=== PATIENT | male | born 1975 | race Caucasian/White ===

== ENCOUNTER → 2017-10-08 | Outpatient (CLI) | payer BC ==
--- NOTE | 2017-10-08 17:46 | Diagnostic Imaging Report ---
PROCEDURE: MRI lumbar spine. TECHNIQUE: Multiplanar, multisequence MRI of the lumbar spine was performed without contrast. INDICATION: Cauda equina syndrome. Numbness at the waist, left leg and groin. More pronounced over the past couple of days. History of lumbar laminectomy in 2011. History of multiple sclerosis. COMPARISON: None. FINDINGS: For the purposes of this exam there are five lumbar type vertebral bodies with the last well formed disk space designated L5-S1. Alignment appears normal. There is no spondylolisthesis. The vertebral body heights are preserved. There is no acute fracture or dislocation. There is mild disc height loss at L5-S1, the remaining disc heights appear preserved. The conus terminates in appropriate position. There is a questionable area of increased signal at the L1 level in the spinal cord (image 9 series 3); however, this is not included on the axial imaging. No paraspinous masses are seen. The axial images demonstrate: T12-L1: No significant disc bulge. No spinal canal or foraminal stenosis. L1-L2: No disk bulge, spinal canal or foraminal stenosis. L2-L3: No disk bulge, spinal canal or foraminal stenosis. L3-L4: No disk bulge, spinal canal or foraminal stenosis. L4-L5: No disk bulge, spinal canal or foraminal stenosis. L5-S1: Diffuse disc bulge. No spinal canal stenosis. Minimal bilateral foraminal narrowing. IMPRESSION: 1. Mild diffuse disc bulge at L5-S1 with no significant spinal canal or foraminal stenosis. 2. Questionable area of increased T2 signal at the L1 level of the spinal cord; however, this is not included on the axial imaging. This could be related to the patient's known multiple sclerosis, recommend correlation with prior imaging if available. Dictated by: Dictated on workstation # [id number]
== END ==
LOC: RAD 16:42
PROVIDERS: ATTEND Nurse Practitioner Family
DX: M51.27 Other intervertebral disc displacement, lumbosacral region (principal); G83.4 Cauda equina syndrome; Z98.890 Other specified postprocedural states; Z87.39 Personal history of other diseases of the musculoskeletal system and connective tissue
CPT/HCPCS: 72148

== ENCOUNTER → 2018-08-02 | Outpatient (CLI) | payer BC ==
[~2018-08-02] VITALS: Ht 180.3 cm; Wt 101.2 kg
[~2018-08-02] MED LIST: REGADENOSON 0.4 MG/5 ML SYR (LEXISCAN) IV ONE
[2018-08-02] MEDS: CATHETER FLUSH 10 ML SYR IV PRN ×2 (08:02→08:45)
[2018-08-02 09:26] LABS: CHOLESTEROL 154 MG/DL (< 200); HDL CHOLESTEROL 43 MG/DL (40-60); TRIGLYCERIDES 150 MG/DL (<150); VLDL CHOLESTEROL 30 MG/DL (5-40)
--- NOTE | 2018-08-02 13:56 | STRESS TEST ---
DATE OF SERVICE: 08/02/2018 RESTING AND POST REGADENOSON TECHNETIUM-99M TETROFOSMIN SPECT CT IMAGING ORDERING PHYSICIAN: Dr. Hutchison. PRIMARY PHYSICIAN: Dr. Hutchison. CLINICAL DIAGNOSIS: Left chest and shoulder pain. Baseline images were carried out after injection of 10.99 mCi of technetium-99m Tetrofosmin. This was followed by 0.4 mg regadenoson and 30.6 mCi technetium-99m Tetrofosmin for stress imaging. The electrocardiogram showed sinus rhythm at baseline and it did not change significantly with the regadenoson infusion. The patient tolerated the procedure well. Review of images at rest and following stress does not indicate any distinct perfusion defects consistent with significant myocardial ischemia or infarction. Gated images show normal global left ventricular systolic function and normal regional wall motion. Left ventricular ejection fraction is calculated to be 62%. Left ventricular end diastolic volume is 91 mL. TID is absent (1.15). CONCLUSIONS: 1. No evidence of any significant myocardial ischemia or infarction on this study. 2. Normal regional wall motion. 3. Normal global left ventricular systolic function with a calculated ejection fraction 62%. Job ID: [id number] DocumentID: [id number] Dictated Date: 08/02/2018 13:27:52 Instrument Lens Inspector Date: 08/02/2018 13:55:35 Dictated By: LORENZO CORONADO MD, MA, FACP, FACC,
== END ==
LOC: CARD 07:31
PROVIDERS: ATTEND Family Medicine
DX: Z13.1 Encounter for screening for diabetes mellitus (principal); Z12.5 Encounter for screening for malignant neoplasm of prostate; E78.2 Mixed hyperlipidemia; M25.512 Pain in left shoulder
CPT/HCPCS: 36415; 78452; 80061; 83036; 84153; 84154; 93017

== ENCOUNTER 2018-08-18 10:30 | Outpatient (CLI) | payer BC ==
[~2018-08-18] VITALS: Ht 185.4 cm; Wt 101.2 kg
[2018-08-18] MEDS ORDERED: BACL10TA PO (11:25)
[2018-08-18] MEDS ORDERED: SERT50TA2 PO (11:25)
[2018-08-18] MEDS ORDERED: OXYB10TA6 PO (11:25)
[2018-08-18] MEDS ORDERED: PRAV40TA2 PO (11:25)
== END 2018-08-18 11:26 ==
LOC: PREOP 10:30
PROVIDERS: ATTEND Surgery
DX: Z01.818 Encounter for other preprocedural examination (principal)

== ENCOUNTER 2018-08-24 11:27 | Day surgery (SDC) | payer BC ==
[~2018-08-24] VITALS: Ht 185.4 cm; Wt 101.2 kg
[~2018-08-24 11:27] MED LIST changes: +BACL10TA PO; +OXYB10TA6 PO; +PRAV40TA2 PO; -REGADENOSON 0.4 MG/5 ML SYR (LEXISCAN) IV ONE; +SERT50TA2 PO
[2018-08-24] MEDS ORDERED: LACTATED RINGERS 1,000 ML IV STA (11:51)
[2018-08-24] MEDS ORDERED: HURRICAINE EXT TUBE (BENZOCAINE) XX PRN (12:00)
--- OUTSIDE RECORDS SUMMARY | 2018-08-24 12:13 | XMS REPORT ---
Author Author [facility] Medical Staff Organization [facility] Address [address] [place] [address] Phone [phone] Summary purpose CCDA Sent to VTE Chief Complaint and Reason for Visit No authorized Reason for Visit (Admitting Diagnosis) is available for this visit. Problem list No authorized problems tracked for continuity of care are available for this visit. Encounters No authorized problems tracked for encounter diagnoses are available for this visit. Medications No medications recorded for this patient visit Allergies, adverse reactions, alerts Allergen Category Ingredient Status Reaction Severity Onset house dust Drug house dust Active Immunizations No immunizations recorded for this patient visit Relevant diagnostic tests and/or laboratory data RESULTS Chemistry Group [id number] Result Normal Range Units Glucose 98 74-106 mg/dl Urea Nitrogen (BUN) 15 7-18 mg/dl Osmolality Calculation 282 275-295 mOsm/kg Creatinine 1.05 0.6-1.3 mg/dl Bun/Creatinine Ratio 14.3 12.0-20.0 Ratio Sodium 141 136-145 mmol/L Potassium 4.8 3.6-5.1 mmol/L Chloride 103 98-107 mmol/L CO2 31.0 21.0-32.0 mmol/L Anion GAP L 7.0 10.0-20.0 mmol Calcium 8.5 8.5-10.1 mg/dl Bilirubin Total 0.5 .1-1.0 mg/dl AST 22 15-37 U/L ALT 43 30-65 U/L Alkaline Phosphatase 76 50-136 U/L Albumin 4.0 3.4-5.0 g/dl A/G Ratio L 1.3 1.5-2.0 Ratio Protein Total 7.0 6.4-8.2 g/dl Globulin 3.0 2.3-3.5 g/dl Bilirubin Indirect 0.40 mg/dl Bilirubin Direct 0.1 .1-.3 mg/dl CPK 175 26-308 U/L Cholesterol 162 1-200 mg/dl Triglycerides H 183 30-150 mg/dl HDL Cholesterol 41 35-60 mg/dl LDL Calculated 84.4 1-130 mg/dl Risk H 4.0 1.4-3.3 Ratio Hemoglobin A1C 5.7 4.8-6.0 % eGFR > 60 > 60 ml/min. CBC [id number] Result Normal Range Units White Blood Count 4.5 4.5-10.5 x 103/uL Red Blood Cells 4.49 4.40-6.40 x 106/uL Hemoglobin 14.2 12.0-18.0 g/dl Hematocrit 42.6 37-51 % Mean Rip Volume 94.8 80-100 fL Mean Rip Hemoglobin 31.6 26.0-32.0 pg Mean Rip Hemoglobin Conc 33.3 31.0-36.0 g/dl Platelet Count 318 140-440 x 103/uL Red Cell Distribution Width 12.3 11.5-14.5 % Mean Platelet Volume 7.4 0-99.8 fL Neutrophil % L 29.9 38.0-80.0 % Lymphocyte % 47.9 10.0-58.5 % Mid % 22.2 0.1-24.0 % Neutrophil # L 1.3 1.5-7.5 x 103/uL Lymphocyte # 2.2 0.6-4.1 x 103/uL Mid # 1.0 0.0-1.8 x 103/uL White Blood Count 4.5 4.5-10.5 x 103/uL Red Blood Cells 4.49 4.40-6.40 x 106/uL Hemoglobin 14.2 12.0-18.0 g/dl Hematocrit 42.6 37-51 % Mean Rip Volume 94.8 80-100 fL Mean Rip Hemoglobin 31.6 26.0-32.0 pg Mean Rip Hemoglobin Conc 33.3 31.0-36.0 g/dl Platelet Count 318 140-440 x 103/uL Red Cell Distribution Width 12.3 11.5-14.5 % Mean Platelet Volume 7.4 0-99.8 fL Neutrophil % L 29.9 38.0-80.0 % Lymphocyte % 47.9 10.0-58.5 % Mid % 22.2 0.1-24.0 % Neutrophil # L 1.3 1.5-7.5 x 103/uL Lymphocyte # 2.2 0.6-4.1 x 103/uL Mid # 1.0 0.0-1.8 x 103/uL Reference Lab [id number] Result Normal Range Units LDL Calculated 84.4 1-130 mg/dl History of procedures Procedure Code Code Type Description Date Performed Performing Physician 40134 CPT-4 COMPLETE CBC W/AUTO DIFF WBC 12-24-2015 MATEUSZ LOPEZ 49784 CPT-4 METABOLIC PANEL TOTAL CA 12-24-2015 MATEUSZ LOPEZ 63863 CPT-4 GLYCOSYLATED HEMOGLOBIN TEST 12-24-2015 MATEUSZ LOPEZ 34603 CPT-4 ASSAY OF CK (CPK) 12-24-2015 MATEUSZ LOPEZ 15223 CPT-4 LIPID PANEL 12-24-2015 MATEUSZ LOPEZ 92123 CPT-4 HEPATIC FUNCTION PANEL 12-24-2015 MATEUSZ LOPEZ 87331 CPT-4 ROUTINE VENIPUNCTURE 12-24-2015 MATEUSZ LOPEZ Functional status No functional or cognitive status observations are available for this visit. Vital signs No authorized vital signs are available for this visit. Social history No Social History or smoking status observations were recorded for this visit. ( Unknown if ever smoked.) Treatment Plan No treatment plan text is available for this visit. Hospital discharge instructions No discharge instruction text is available for this visit.
--- OUTSIDE RECORDS SUMMARY | 2018-08-24 12:14 | XMS REPORT ---
Author Author [facility] Medical Staff Organization [facility] Address [address] [place] [address] Phone [phone] Summary purpose CCDA Sent to HIE Chief Complaint and Reason for Visit No authorized Reason for Visit (Admitting Diagnosis) is available for this visit. Problem list No authorized problems tracked for continuity of care are available for this visit. Encounters No authorized problems tracked for encounter diagnoses are available for this visit. Medications No home medications recorded for this patient visit Allergies, adverse reactions, alerts No allergy information is available for this patient. Immunizations No immunizations recorded for this patient visit Relevant diagnostic tests and/or laboratory data RESULTS Urine Dipstick [id number]:00 Result Normal Range Units Site Unknown Urine Bilirubin (Dipstick) Negative Negative Urine Blood (Dipstick) Negative Negative Urine Color AB Light Yellow Yellow Urine Glucose (Dipstick) Negative Negative Urine Ketones (Dipstick) Negative Negative Urine Leukocyte (Dipstick) Negative Negative Urine Nitrite (Dipstick) Negative Negative Urine pH (Dipstick) 6.0 4.5-8.0 Urine Appearance Clear Clear Urine Protein (Dipstick) Negative Negative Urine Urobilinogen(Dipstick) 0.2 0.1-1.0 EU/dL Urine Specific [place] (Dipsti 1.020 1.004-1.035 Urine WBC AB 3-5 N;NONESEEN /hpf Urine RBC AB 0-2 NONESEEN;NEG /hpf Urine Bacteria Rare Sqamous Epi's Rare Mucus Threads Many Site Unknown Urine Bilirubin (Dipstick) Negative Negative Urine Blood (Dipstick) Negative Negative Urine Color AB Light Yellow Yellow Urine Glucose (Dipstick) Negative Negative Urine Ketones (Dipstick) Negative Negative Urine Leukocyte (Dipstick) Negative Negative Urine Nitrite (Dipstick) Negative Negative Urine pH (Dipstick) 6.0 4.5-8.0 Urine Appearance Clear Clear Urine Protein (Dipstick) Negative Negative Urine Urobilinogen(Dipstick) 0.2 0.1-1.0 EU/dL Urine Specific [place] (Dipsti 1.020 1.004-1.035 Urine WBC AB 3-5 N;NONESEEN /hpf Urine RBC AB 0-2 NONESEEN;NEG /hpf Urine Bacteria Rare Sqamous Epi's Rare Mucus Threads Many History of procedures Procedure Code Code Type Description Date Performed Performing Physician 72988 CPT-4 URINALYSIS AUTO W/SCOPE 04-24-2015 NICHOLAS HURLEY Functional status No functional or cognitive status [...]
--- OUTSIDE RECORDS SUMMARY | 2018-08-24 12:14 | XMS REPORT ---
Author Author ANJALI JEWELL Organization [facility] Address [address] [place] [address] Care Team Providers Care Fuel Cell Binder Name Role Phone ANJALI JEWELL Unavailable PROBLEMS Type Condition ICD9-CM Code [id number] Code Onset Dates Condition Status SNOMED Code Problem Cauda equina syndrome G83.4 Active 615193440 Problem Mixed hyperlipidemia E78.2 Active 542159958 Problem Mild episode of recurrent major depressive disorder F33.0 Active 115424339 Problem MS (multiple sclerosis) G35 Active 81207389 Problem Gastroesophageal reflux disease with esophagitis K21.0 Active 051649252 ALLERGIES Substance Reaction Event Type Date Status Morphine Sulfate hives Drug Allergy Apr, Active ENCOUNTERS Encounter Location Date Diagnosis [facility] [address] [address] Sep, [facility] [address] [address] Sep, [facility] [address] [address] Sep, Cauda equina syndrome G83.4 [facility] [id number] [place] [address] Sep, Mixed hyperlipidemia E78.2 ; MS (multiple sclerosis) G35 and Gastroesophageal reflux disease with esophagitis K21.0 [facility] [id number] [place] [address] Aug, [facility] [address] [address] Jul, [facility] [id number] [place] [address] Jun, [facility] [address] [facility] [id number] [place] [address] Jun, [facility] [address] [facility] [id number], [place] [address] Apr, Mild episode of recurrent major depressive disorder F33.0 ; MS (multiple sclerosis) G35 and Gastroesophageal reflux disease with esophagitis K21.0 [facility] [address] [facility] [id number] [place] [address] Mar, IMMUNIZATIONS No Known Immunizations SOCIAL HISTORY Never Assessed REASON FOR VISIT est care---DBennettRN PLAN OF CARE Activity Details Follow Up Will call after records are reviewed Reason: VITAL SIGNS Height 73 in 2017-04-21 Weight 235 lbs 2017-04-21 Temperature 98.1 degrees Fahrenheit 2017-04-21 Heart Rate 80 bpm 2017-04-21 Respiratory Rate 20 2017-04-21 BMI 31.00 kg/m2 2017-04-21 Blood pressure systolic 120 mmHg 2017-04-21 Blood pressure diastolic 76 mmHg 2017-04-21 MEDICATIONS Medication Instructions Dosage Frequency Start Date End Date Duration Status Ibuprofen 800 MG Orally 3 times a day 1 tablet with food or milk as needed 8h Active Sertraline HCl 50 mg Orally Once a day 2 tablets 24h Active Pantoprazole Sodium 40 MG Orally Once a day 1 tablet 24h Active Baclofen 10 mg Orally 2 times a day 1 tablet with food or milk 12h Active Pravastatin Sodium 40 MG Orally Once a day 1 tablet 24h Active RESULTS No Results PROCEDURES No Known procedures INSTRUCTIONS MEDICATIONS ADMINISTERED No Known Medications MEDICAL (GENERAL) HISTORY Type Description Date Medical History multiple sclerosis Medical History anxiety Medical History acid reflux Medical History diverticulosis Surgical History vasectomy 2001 Surgical History wisdom teeth extraction 2007 Surgical History laminectomy L5-S1 2012 Surgical History Spinal tap and blood patch 2017 Hospitalization History Surgery(s) only
--- OUTSIDE RECORDS SUMMARY | 2018-08-24 12:14 | XMS REPORT ---
Author Author LACIE STEPHENSON Organization [facility] Address [address] [place] [address] Care Team Providers Care Hotel Housekeeper Name Role Phone LACIE STEPHENSON Unavailable PROBLEMS Type Condition ICD9-CM Code [id number] Code Onset Dates Condition Status SNOMED Code Problem Cauda equina syndrome G83.4 Active 542971481 Problem Mixed hyperlipidemia E78.2 Active 259413213 Problem Mild episode of recurrent major depressive disorder F33.0 Active 933683688 Problem MS (multiple sclerosis) G35 Active 86878888 Problem Gastroesophageal reflux disease with esophagitis K21.0 Active 653773674 ALLERGIES No Information ENCOUNTERS Encounter Location Date Diagnosis [facility] [place] [id number] [place] [address] Sep, [facility] [place] [id number] [place] [address] Sep, [facility] [place] [address] [address] Sep, Cauda equina syndrome G83.4 [facility] [place] [id number] [place] [address] Sep, Mixed hyperlipidemia E78.2 ; MS (multiple sclerosis) G35 and Gastroesophageal reflux disease with esophagitis K21.0 [facility] [place] [id number] [place] [address] Aug, [facility] [place] [address] [address] Jul, [facility] [place] [id number] [place] [address] Jun, [facility] [id number] [place] [address] Jun, [facility] [place] [address] [facility] [id number], [place] [address] Apr, Mild episode of recurrent major depressive disorder F33.0 ; MS (multiple sclerosis) G35 and Gastroesophageal reflux disease with esophagitis K21.0 [facility] [place] [address] [facility] [id number] [place] [address] Mar, IMMUNIZATIONS No Known Immunizations SOCIAL HISTORY Never Assessed REASON FOR VISIT Requests return call PLAN OF CARE VITAL SIGNS MEDICATIONS Unknown Medications RESULTS No Results PROCEDURES No Known procedures INSTRUCTIONS MEDICATIONS ADMINISTERED No Known Medications MEDICAL (GENERAL) HISTORY Type Description Date Medical History multiple sclerosis Medical History anxiety Medical History acid reflux Medical History diverticulosis Surgical History vasectomy 2001 Surgical History wisdom teeth extraction 2007 Surgical History laminectomy L5-S1 2011 Surgical History Spinal tap and blood patch 2017 Hospitalization History Surgery(s) only
--- OUTSIDE RECORDS SUMMARY | 2018-08-24 12:14 | XMS REPORT ---
Author Author LACIE STEPHENSON Organization [facility] Address [address] [place] [address] Care Team Providers Care Metal Mockup Maker Name Role Phone LACIE STEPHENSON Unavailable PROBLEMS Type Condition ICD9-CM Code FTS20-OC Code Onset Dates Condition Status SNOMED Code Problem Cauda equina syndrome G83.4 Active 750580222 Problem Mixed hyperlipidemia E78.2 Active 380677235 Problem Mild episode of recurrent major depressive disorder F33.0 Active 810921310 Problem MS (multiple sclerosis) G35 Active 27276669 Problem Gastroesophageal reflux disease with esophagitis K21.0 Active 811678145 ALLERGIES Substance Reaction Event Type Date Status Morphine Sulfate hives Drug Allergy Sep, Active ENCOUNTERS Encounter Location Date Diagnosis [facility] [address] [address] Sep, [facility] [address] [address] Sep, [facility] [address] [address] Sep, Cauda equina syndrome G83.4 [facility] [id number] [place] [address] Sep, Mixed hyperlipidemia E78.2 ; MS (multiple sclerosis) G35 and Gastroesophageal reflux disease with esophagitis K21.0 [facility] [address] [address] Aug, [facility] [address] [address] Jul, [facility] [id number] [place] [address] Jun, [facility] [address] [facility] [id number] [place] [address] Jun, [facility] [address] [facility] [id number] [address] Apr, Mild episode of recurrent major depressive disorder F33.0 ; MS (multiple sclerosis) G35 and Gastroesophageal reflux disease with esophagitis K21.0 [facility] [address] [facility] [id number], [place] [address] Mar, IMMUNIZATIONS No Known Immunizations SOCIAL HISTORY Never Assessed REASON FOR VISIT patient states he is having left Leg numbness starting from hip down to his knee x yesterday -- cristian berry PLAN OF CARE Activity Details Follow Up 1 Week, prn w/ PCP Reason:leg numbness MRI results VITAL SIGNS Height 73 in 2017-10-08 Weight 221.0 lbs 2017-10-08 Temperature 98.0 degrees Fahrenheit 2017-10-08 BMI 29.15 kg/m2 2017-10-08 Blood pressure systolic 124 mmHg 2017-10-08 Blood pressure diastolic 82 mmHg 2017-10-08 MEDICATIONS Medication Instructions Dosage Frequency Start Date End Date Duration Status Pantoprazole Sodium 40 mg Orally Once a day 1 tablet 24h Active Sertraline HCl 50 mg Orally Once a day 2 tablets 24h Active Baclofen 10 mg Orally 2 times a day 1 tablet with food or milk 12h Active Ibuprofen 800 MG Orally 3 times a day 1 tablet with food or milk as needed 8h Active Pravastatin Sodium 40 mg Orally Once a day 1 tablet 24h 30 days Active RESULTS Name Result Date Reference Range MRI : Lumbar w/o contrast 2017-10-08 PROCEDURES No Known procedures INSTRUCTIONS MEDICATIONS ADMINISTERED [...]
--- OUTSIDE RECORDS SUMMARY | 2018-08-24 12:14 | XMS REPORT ---
Author Author ANJALI JEWELL Organization [facility] Address [address] [place] [address] Care Team Providers Care Dental Professional Name Role Phone ANJALI JEWELL Unavailable PROBLEMS Type Condition ICD9-CM Code ZNM51-OH Code Onset Dates Condition Status SNOMED Code Problem Cauda equina syndrome G83.4 Active 626179930 Problem Mixed hyperlipidemia E78.2 Active 871665183 Problem Mild episode of recurrent major depressive disorder F33.0 Active 180489010 Problem MS (multiple sclerosis) G35 Active 30677131 Problem Gastroesophageal reflux disease with esophagitis K21.0 Active 843814710 ALLERGIES Substance Reaction Event Type Date Status Morphine Sulfate hives Drug Allergy Sep, Active ENCOUNTERS Encounter Location Date Diagnosis [facility] [address] [address] Sep, [facility] [address] [address] Sep, [facility] [address] [address] Sep, Cauda equina syndrome G83.4 [facility] [id number] [place] [address] Sep, Mixed hyperlipidemia E78.2 ; MS (multiple sclerosis) G35 and Gastroesophageal reflux disease with esophagitis K21.0 [facility] [id number] [place] [address] Aug, [facility] [address] [address] Jul, [facility] [id number] [place] [address] Jun, [facility] [address] [facility] [id number] [place] [address] Jun, [facility] [address] [facility] [id number], [place] [address] Apr, Mild episode of recurrent major depressive disorder F33.0 ; MS (multiple sclerosis) G35 and Gastroesophageal reflux disease with esophagitis K21.0 [facility] [address] [facility] [id number] [place] [address] Mar, IMMUNIZATIONS No Known Immunizations SOCIAL HISTORY Never Assessed REASON FOR VISIT followup gerd - EDISON Christopher PLAN OF CARE Activity Details Follow Up 6 Months with Kianna for [facility] Reason: VITAL SIGNS Height 73 in 2017-09-20 Weight 220 lbs 2017-09-20 Temperature 98.2 degrees Fahrenheit 2017-09-20 Heart Rate 80 bpm 2017-09-20 Respiratory Rate 18 2017-09-20 BMI 29.02 kg/m2 2017-09-20 Blood pressure systolic 100 mmHg 2017-09-20 Blood pressure diastolic 70 mmHg 2017-09-20 MEDICATIONS Medication Instructions Dosage Frequency Start Date End Date Duration Status Ibuprofen 800 MG Orally 3 times a day 1 tablet with food or milk as needed 8h Active Pravastatin Sodium 40 mg Orally Once a day 1 tablet 24h 30 days Active Baclofen 10 mg Orally 2 times a day 1 tablet with food or milk 12h Active Sertraline HCl 50 mg Orally Once a day 2 tablets 24h Active Pantoprazole Sodium 40 mg Orally Once a [...]
--- OUTSIDE RECORDS SUMMARY | 2018-08-24 12:14 | XMS REPORT ---
Author Author [facility] Medical Staff Organization [facility] Address [address] [place] [address] Phone [phone] Summary purpose CCDA Sent to [facility] Chief Complaint and Reason for Visit No [...] visit Relevant diagnostic tests and/or laboratory data No authorized results are available for this patient visit History of procedures Procedure Code Code Type Description Date Performed Performing Physician 99418 CPT-4 INJECT EPIDURAL PATCH 10-13-2016 NICHOLAS HURLEY Functional status Cognitive Status Finding Observation Time Level of Consciousne Alert :12 Oriented to Person Yes 01-20-209736:[address] Yes 74-06-619686:12 Oriented to Time Yes :12 Vital signs Type Value Date Respirations 16 90-59-257973:12 Pulse 76 69-58-534422:12 O2 Saturation 97% :12 Systolic Blood Press 97mm/HG 93-48-348865:12 Diastolic Blood Pres 67mm/HG 59-73-650035:12 Temperature (Fahr) 98.4Degrees 60-22-014305:12 Social history No Social History or smoking status observations were recorded for this visit. ( Unknown if ever smoked.) Treatment Plan No treatment plan text is available for this visit. Hospital discharge instructions Diagnosis 1. Spinal Headache status post Lumbar Puncture Activity Level 1. Rest this evening and x 48 hours 2. Avoid lifting, repetitive bending x48 hours 3. Activity as discussed with David Chris CRNA Follow up with As needed Other Certified Ins Contact [facility] with any questions or concerns at
--- OUTSIDE RECORDS SUMMARY | 2018-08-24 12:14 | XMS REPORT ---
Author Author LACIE STEPHENSON Organization [facility] Address [address] [place] [address] Care Team Providers Care Meat Butcher Name Role Phone LACIE STEPHENSON Unavailable PROBLEMS Type Condition ICD9-CM Code CWK80-PR Code Onset Dates Condition Status SNOMED Code Problem Cauda equina syndrome G83.4 Active 318706537 Problem Mixed hyperlipidemia E78.2 Active 760462711 Problem Mild episode of recurrent major depressive disorder F33.0 Active 219666703 Problem MS (multiple sclerosis) G35 Active 13711096 Problem Gastroesophageal reflux disease with esophagitis K21.0 Active 230513642 ALLERGIES No Information ENCOUNTERS Encounter Location Date Diagnosis [facility] [id number] [place] [address] Sep, [facility] [id number] [place] [address] Sep, [facility] [address] [address] Sep, Cauda equina syndrome G83.4 [facility] [id number] [place] [address] Sep, Mixed hyperlipidemia E78.2 ; MS (multiple sclerosis) G35 and Gastroesophageal reflux disease with esophagitis K21.0 [facility] [id number] [place] [address] Aug, [facility] [address] [address] Jul, [facility] [id number] [place] [address] Jun, [facility] [id number] [place] [address] Jun, [facility] [address] [facility] [id number] [address] Apr, Mild episode of recurrent major depressive disorder F33.0 ; MS (multiple sclerosis) G35 and Gastroesophageal reflux disease with esophagitis K21.0 [facility] [address] [facility] [id number] [place] [address] Mar, IMMUNIZATIONS No Known Immunizations SOCIAL HISTORY Never Assessed REASON FOR VISIT MRI results PLAN OF CARE VITAL SIGNS MEDICATIONS Unknown Medications RESULTS No Results PROCEDURES No Known procedures INSTRUCTIONS MEDICATIONS ADMINISTERED No Known Medications MEDICAL (GENERAL) HISTORY Type Description Date Medical History multiple sclerosis Medical History anxiety Medical History acid reflux Medical History diverticulosis Surgical History vasectomy 2001 Surgical History wisdom teeth extraction 2007 Surgical History laminectomy L5-S1 2011 Surgical History Spinal tap and blood patch 2016 Hospitalization History Surgery(s) only
--- OUTSIDE RECORDS SUMMARY | 2018-08-24 12:14 | XMS REPORT ---
Author Author [facility] Medical Staff Organization [facility] Address [address] [place] [address] Phone [phone] Summary purpose CCDA Sent to [facility] Chief Complaint and Reason for Visit No [...] Code Type Description Date Performed Performing Physician Q9966 CPT-4 LOCM 200-299MG/ML IODINE,1ML 08-28-2015 MARK SORENSON J1040 CPT-4 METHLPREDNISOLONE ACETATE 08-28-2015 MARK SORENSON J1030 CPT-4 DEPO MEDROL 40MG 08-28-2015 MARK SORENSON 17328 CPT-4 INJECT SPINE L/S (CD) 08-28-2015 MARK SORENSON Functional status Cognitive Status Finding Observation Time Level of Consciousne Alert 07-67-143331:00 Oriented to Person Yes 49-86-934268:[address] Yes 49-67-529726:00 Oriented to Time Yes 38-07-016672:00 Vital signs Type Value Date Respirations 16 14-55-260585:00 Pulse 60 96-99-732838:00 O2 Saturation 92% 93-70-289644:00 Systolic Blood Press 119mm/HG 43-00-718523:00 Diastolic Blood Pres 64mm/HG 71-42-490633:00 Temperature (Fahr) 97.8Degrees 33-74-293022:00 Social history No Social History or smoking status observations were recorded for this visit. ( Unknown if ever smoked.) Treatment Plan Treatment Plan at Pt able to move all limbs, stand, walk. No change in meds. Hospital discharge instructions Diagnosis post epidural Diet as tolerated Activity Level Rest next 24-48 hrs. No lifting greater than 15 pounds, Limit bending /twisting X 2 days. Continue routine home medication. Meds Dispensed by Pr none
--- OUTSIDE RECORDS SUMMARY | 2018-08-24 12:14 | XMS REPORT ---
Author Author Osmany Vásquez Organization [employer] Address Unknown Phone Unavailable Care Team Providers Care Taker Off Name Role Phone Osmany Vásquez CP Unavailable Allergies, Adverse Reactions, Alerts Substance Reaction Event Type morphine hives Drug Allergy chlorine headaches, blurred vision Non Drug Allergy Problems Problem Type Condition Code Onset Dates Condition Status Problem Seborrheic dermatitis L21.9 Active Problem Family history of melanoma Z80.8 Active Medications Medication Code System Code Instructions Start Date End Date Status Dosage gabapentin NDC ____ not defined sertraline NDC ____ not defined pravastatin NDC ____ not defined pantoprazole NDC ____ not defined Results No Known Results Summary Purpose [employer] Submission
--- OUTSIDE RECORDS SUMMARY | 2018-08-24 12:14 | XMS REPORT | Referral Summary ---
Author Author [facility] Organization [facility] Address Unknown Phone Unavailable Care Team Providers Care Auto Machinist Name Role Phone Min Colvin PCP Encounter VC Date(s): 10/08/16 - 10/08/16 [facility] [address] [place] [address] Discharge Disposition: 01-Home or Self Care Attending Physician: Asa Smart MD Admitting Physician: Asa Smart MD Vital Signs Most recent to 1 oldest [Reference Range]: Temperature Temporal 36.8 degC Artery [36.3-37.8 (10/08/16 2:30 PM) degC] Peripheral Pulse 72 bpm Rate [60-100 bpm] (10/08/16 2:30 PM) Heart Rate Monitored 68 bpm [60-100 bpm] (10/08/16 12:45 PM) Respiratory Rate 18 br/min [14-20 br/min] (10/08/16 2:30 PM) Blood Pressure 128/68 mmHg [90-140/60-90 mmHg] (10/08/16 2:30 PM) SpO2 98 % (10/08/16 2:30 PM) Problem List Condition Effective Dates Status Health Status Informant Anxiety(Confirmed) Active patient H/O Active patient hypotension(Confirme d) HLD Active patient (hyperlipidemia)(Con firmed) Allergies, Adverse Reactions, Alerts Substance Reaction Severity Status morphine Welts Medium Active Hives Medications aspirin 81 mg oral tablet 81 mg 1 tabs, Oral, Daily, # 30 tabs, 0 Refill(s) Start Date: 10/08/16 Status: Ordered baclofen 10 mg oral tablet 10 mg 1 tabs, Oral, TID, Muscle Pain, # 270 tabs, 0 Refill(s) Start Date: 10/08/16 Status: Ordered Claritin 10 mg, Oral, Daily, 0 Refill(s) Start Date: 10/08/16 Status: Ordered cyclobenzaprine 10 mg oral tablet 10 mg 1 tabs, Oral, BID, as needed for spasm, # 30 tabs, 0 Refill(s) Start Date: 10/08/16 Status: Ordered ibuprofen 800 mg, Oral, q8hr, Pain Mild (1-3), 0 Refill(s) Start Date: 10/08/16 Status: Ordered MiraLax oral powder for reconstitution 17 g, Oral, Daily, dissolve in water before taking, # 255 g, 0 Refill(s) Start Date: 10/08/16 Status: Ordered One-A-Day Men's Health Formula tabs, Oral, Daily, 0 Refill(s) Start Date: 10/08/16 Status: Ordered pantoprazole 40 mg oral delayed release tablet mg tabs, Oral, Daily, 0 Refill(s) Start Date: 10/08/16 Status: Ordered pravastatin 10 mg oral tablet 10 mg 1 tabs, Oral, Daily, # 30 tabs, 0 Refill(s) Start Date: 10/08/16 Status: Ordered Probiotic Formula (Bacillus Coagulans) 1 caps, Oral, Daily, 0 Refill(s) Start Date: 10/08/16 Status: Ordered sertraline 75 mg, Oral, Daily, 0 Refill(s) Start Date: 10/08/16 Status: Ordered Results Hematology Most recent to 1 oldest [Reference Range]: WBC [4.8-10.8 5.1 10*3/uL 10*3/uL] (10/08/16 10:00 AM) RBC [4.60-6.20] 4.60 (10/08/16 10:00 AM) Hgb [14.0-18.0 13.7 gm/dL gm/dL] *LOW* (10/08/16 10:00 AM) Hct [42.0-52.0 %] 41.2 % *LOW* (10/08/16 10:00 AM) MCV [82.0-99.0 fL] 89.6 fL (10/08/16 10:00 AM) MCH [27.0-32.0 pg] 29.8 pg (10/08/16 10:00 AM) MCHC [32.0-36.0 33.3 gm/dL gm/dL] (10/08/16 10:00 AM) RDW [11.5-14.5 %] 12.5 % (10/08/16 10:00 AM) Platelet [150-400 270 10*3/uL 10*3/uL] (10/08/16 10:00 AM) MPV [9.4-12.3 fL] 9.5 fL (10/08/16 10:00 AM) Immature 0.2 % Granulocytes (10/08/16:00 AM) [0.0-1.0 %] Neutrophils [51-75 52 % %] (10/08/16 10:00 AM) Lymphocytes [20-46 37 % %] (10/08/16 10:00 AM) Monocytes [4-11 %] 6 % (10/08/16 10:00 AM) Eosinophils [0-4 %] 5 % *HI* (10/08/16:00 AM) Basophils [0-2 %] 0 % (10/08/16:00 AM) Neutro Absolute 2.67 [1.90-7.00] (10/08/16 10:00 AM) Lymph Absolute 1.90 [0.80-3.30] (10/08/16 10:00 AM) Latimer Absolute 0.31 [0.30-1.00] (10/08/16 10:00 AM) Eos Absolute 0.24 [0.00-0.50] (10/08/16 10:00 AM) Baso Absolute 0.01 [0.00-0.20] (10/08/16 10:00 AM) Nucleated RBC 0.0 /100 WBC Automated [0 /100 (10/08/16 10:00 AM) WBC] Coagulation Most recent to 1 oldest [Reference Range]: INR [0.9-1.2] 0.9 (10/08/16 10:00 AM) PTT [25.0-35.0 28.0 seconds seconds] (10/08/16 10:00 AM) Microbiology Reports TEST: Cerebrospinal Fluid Culture and Smear STATUS: Order in Progress BODY SITE: SOURCE: Cerebrospinal Fluid COLLECTED DATE/TIME: 10/08/16 11:35 AM Gram Smear No white blood cells No microorganisms observed OIF=Oil Immersion Field LPF=Low Power Field Immunizations No data available for this section Procedures Procedure Date Related Diagnosis Body Site Spinal puncture, lumbar, diagnostic.. 10/08/16 Colonoscopy1 Laminectomy and discectomy2 Vasectomy3 91400 [id number] Social History Social History Type Response Smoking Status Never smoker Assessment and Plan No data available for this section
--- OUTSIDE RECORDS SUMMARY | 2018-08-24 12:14 | XMS REPORT ---
Author Author ANJALI JEWELL Organization [facility] Address [address] [place] [address] Care Team Providers Care Associate Financial Analyst Name Role Phone ANJALI JEWELL Unavailable PROBLEMS Type Condition ICD9-CM Code [id number] Code Onset Dates Condition Status SNOMED Code Problem Cauda equina syndrome G83.4 Active 333340997 Problem Mixed hyperlipidemia E78.2 Active 168690913 Problem Mild episode of recurrent major depressive disorder F33.0 Active 121445282 Problem MS (multiple sclerosis) G35 Active 91994610 Problem Gastroesophageal reflux disease with esophagitis K21.0 Active 291631833 ALLERGIES No Information ENCOUNTERS Encounter Location Date Diagnosis [facility] [address] [address] Sep, [facility] [address] [address] Sep, [facility] [address] [address] Sep, Cauda equina syndrome G83.4 [facility] [id number] [place] [address] Sep, Mixed hyperlipidemia E78.2 ; MS (multiple sclerosis) G35 and Gastroesophageal reflux disease with esophagitis K21.0 [facility] [id number] [place] [address] Aug, [facility] [address] [address] Jul, [facility] [id number] [place] [address] Jun, [facility] [address] [address] Jun, [facility] [address] [facility] [id number] [place] [address] Apr, Mild episode of recurrent major depressive disorder F33.0 ; MS (multiple sclerosis) G35 and Gastroesophageal reflux disease with esophagitis K21.0 [facility] [address] [facility] [id number] [place] [address] Mar, IMMUNIZATIONS No Known Immunizations SOCIAL HISTORY Never Assessed REASON FOR VISIT refill PLAN OF CARE VITAL SIGNS MEDICATIONS Medication Instructions Dosage Frequency Start Date End Date Duration Status Ibuprofen 800 MG Orally 3 times a day 1 tablet with food or milk as needed 8h Active RESULTS No Results PROCEDURES No Known [...]
--- OUTSIDE RECORDS SUMMARY | 2018-08-24 12:14 | XMS REPORT ---
Author Author ANJALI JEWELL Organization [facility] Address [address] [place] [address] Care Team Providers Care Director Water And Waste Services Name Role Phone ANJALI JEWELL Unavailable PROBLEMS Type Condition ICD9-CM Code HRY31-DI Code Onset Dates Condition Status SNOMED Code Problem Cauda equina syndrome G83.4 Active 630304748 Problem Mixed hyperlipidemia E78.2 Active 342176161 Problem Mild episode of recurrent major depressive disorder F33.0 Active 256186695 Problem MS (multiple sclerosis) G35 Active 53672041 Problem Gastroesophageal reflux disease with esophagitis K21.0 Active 777189351 ALLERGIES Substance Reaction Event Type Date Status Morphine Sulfate hives Drug Allergy Mar, Active ENCOUNTERS Encounter Location Date Diagnosis [facility] [address] [address] Sep, [facility] [address] [address] Sep, [facility] [address] [address] Sep, Cauda equina syndrome G83.4 [facility] [id number] [place] [address] Sep, Mixed hyperlipidemia E78.2 ; MS (multiple sclerosis) G35 and Gastroesophageal reflux disease with esophagitis K21.0 [facility] [id number] [place] [address] Aug, [facility] [address] [address] Jul, [facility] [id number] [place] [address] Jun, [facility] [address] [facility] [id number] [place] [address] Jun, [facility] [address] [facility] [id number] [place] [address] Apr, Mild episode of recurrent major depressive disorder F33.0 ; MS (multiple sclerosis) G35 and Gastroesophageal reflux disease with esophagitis K21.0 [facility] [address] [facility] [id number] [place] [address] Mar, IMMUNIZATIONS No Known Immunizations SOCIAL HISTORY Never Assessed REASON FOR VISIT [facility] Updated-ADaviedRN PLAN OF CARE VITAL SIGNS MEDICATIONS Medication Instructions Dosage Frequency Start Date End Date Duration Status Pravastatin Sodium 40 MG Orally Once a day 1 tablet 24h Active Sertraline HCl 50 mg Orally Once a day 1 1/2 tablet 24h Active Baclofen 10 mg Orally 2 times a day 1 tablet with food or milk 12h Active Pantoprazole Sodium 40 MG Orally Once a day 1 tablet 24h Active Ibuprofen 800 MG Orally PRN 1 tablet with food or milk as needed Active RESULTS No Results PROCEDURES No Known [...]
--- OUTSIDE RECORDS SUMMARY | 2018-08-24 12:15 | XMS REPORT | Continuity of Care Document ---
Author Author [facility] Organization [facility] Address Unknown Phone Unavailable Allergies Active Description Code Type Severity Reaction Onset Reported/Identified Relationship to Patient Clinical Status Yes morphine Drug Allergy N/A N/A Confirmed or Verified Yes Chlorine [id number] Miscellaneous Allergy Moderate nausea~Blurred vision~headache Yes Morphine Sulfate [id number] Drug Allergy Moderate hives Yes CHLORINE Drug Allergy N/A N/A Yes MORPHINE Drug Allergy N/A N/A Yes morphine 1545 Drug Allergy Mild Rash 05/21/2013 Yes No known drug allergies Drug Allergy N/A N/A 05/21/2013 Confirmed but inactive Yes house dust 3107 Drug Allergy N/ A N/A 08/28/2015 Confirmed or Verified Yes Chlorine CHLORINE Miscellaneous Allergy Unknown N/A 12/10/2015 Yes morphine [id number] Drug Allergy Unknown N/A 12/10/2015 Yes Chlorine Environmental Allergy Unknown Headaches 08/03/2016 Yes morphine Drug Allergy Unknown Hives 08/03/2016 Yes morphine NKMA Medium [id number] ACSYtQD 10/08/2016 Yes morphine [id number] Drug Allergy Unknown N/A 08/02/2018 Medications Medication Packaging Start Date Stop Date Route Dosage Sig PRAVASTATIN 40 MG TABLET AMPULE 40 MG TAKE 1 (ONE) TABLET BY ORAL ROUTE DAILY PANTOPRAZOLE 40 MG TABLET,DELAYED RELEASE AMPULE 08/03/2016 40 MG TAKE 1 (ONE) TABLET BY ORAL ROUTE DAILY BACLOFEN 10 MG TABLET TABLET 201609/29/2016 10 MG TAKE 1 (ONE) TABLET BY ORAL ROUTE THREE TIMES PER DAY sertraline(sertraline) 2016 Oral 75 mg 75 mg , Oral, Daily, 0 Refill(s) pantoprazole(pantoprazole 40 mg oral delayed release tablet) tabs 10/08/2016 Oral mg mg=tabs, Oral, Daily, 0 Refill(s) pravastatin(pravastatin 10 mg oral tablet) 1 tabs 10/08/2016 Oral 10 mg 10 mg=1 tabs, Oral, Daily, 30 tabs, 0 Refill(s) aspirin(aspirin 81 mg oral tablet) 1 tabs 10/08/2016 Oral 81 mg 81 mg=1 tabs, Oral, Daily, 30 tabs, 0 Refill(s) loratadine(Claritin) 10/08/2016 Oral 10 mg 10 mg, Oral , Daily, 0 Refill(s) cyclobenzaprine(cyclobenzaprine 10 mg oral tablet) 1 tabs 10/08/2016 Oral 10 mg 10 mg=1 tabs, Oral, BID, PRN: as needed for spasm, 30 tabs, 0 Refill(s) baclofen(baclofen 10 mg oral tablet) 1 tabs 10/08/2016 Oral 10 mg 10 mg=1 tabs, Oral, TID, PRN: Muscle Pain, 270 tabs, 0 Refill(s) ibuprofen(ibuprofen) 10/08/2016 Oral 800 mg 800 mg, Oral, q8hr, PRN: Pain Mild (1-3), 0 Refill(s) polyethylene glycol 3350(MiraLax oral powder for reconstitution) 10/08/2016 Oral 17 g 17 g, Oral, Daily, dissolve in water before taking, 255 g, 0 Refill(s) lidocaine(lidocaine 1% (buffered) injection; 10mL) 10 mL 10/08/2016 10/08/2016 IntraDermal 10 mL, IntraDermal, Once acetaminophen(acetaminophen) 2 tabs 10/08/2016 10/08/2016 Oral 1,000 mg 1,000 mg=2 tabs, Oral, q4hr, PRN: Pain Mild (1-3) Problems Date Dx Coded Attending Type Code Diagnosis Diagnosed By 04/25/2013 PERCY FAY MD V04.81 INFLUENZA VIRUS VACCINE 05/21/2013 ANAIS HERNÁNDEZ MD 724.2 LUMBAGO 05/21/2013 ANAIS HERNÁNDEZ MD 847.2 SPRAIN LUMBAR REGION 05/21/2013 ANAIS HERNÁNDEZ MD E000.9 EXT CAUSE STATUS NOS 05/21/2013 ANAIS HERNÁNDEZ MD E029.9 ACTIVITY NEC 05/21/2013 ANAIS HERNÁNDEZ MD E849.[address] NOS 05/21/2013 ANAIS HERNÁNDEZ MD E927.0 OVEREXERTION FROM SUDDEN 05/03/2014 BETTY JOY, ANAIS Castro V04.81 INFLUENZA VIRUS VACCINE 01/24/2015 Asa Murillo MD OT 272.0 01/24/2015 Asa Murillo MD OT V58.69 04/23/2015 Nicholas Colvin MD 788.62 Urinary hesitancy 04/24/2015 NICHOLAS COLVIN MD R35.0 Frequency of micturition 04/30/2015 Nicholas Colvin MD 724.03 Spinal stenosis, lumbar region, with neurogenic claudication 06/17/2015 Nicholas Colvin MD 789.09 Suprapubic abdominal pain 08/28/2015 MARK SORENSON MD M54.16 Radiculopathy, lumbar region 08/28/2015 MARK SORENSON MD M54.5 Low back pain 10/29/2015 Nicholas Colvin MD 724.8 Back spasm 12/24/2015 MATEUSZ LOPEZ MD E78.0 Pure hypercholesterolemia 12/24/2015 MATEUSZ LOPEZ MD Z79.899 Other jail (current) drug therapy 01/01/2016 Nicholas Colvin MD V74.1 Screening for pulmonary tuberculosis 01/03/2016 Nicholas Colvin MD V71.2 Observation for suspected tuberculosis 01/17/2016 Asa Murillo MD OT E78.2 02/04/2016 Nicholas Colvin MD 296.22 Moderate depression 05/25/2016 Marii Maria, Nicholas Agrawal M48.06 SPINAL STENOSIS, LUMBAR REGION 08/04/2016 Asa Smart M54.5 Low back pain Asa Smart 08/11/2016 Bing Maria, Asa Agrawal M54.2 CERVICALGIA 08/11/2016 Bing Maria, Asa Agrawal R29.818 OTHER SYMPTOMS AND SIGNS INVOLVING THE NERVOUS SYS 08/11/2016 Asa Smart M.D. R90.89 OTH ABNORMAL FINDINGS ON DIAGNOSTIC IMAGING OF HOUSEKEEPER NANNY 09/02/2016 Nicholas Colvin MD 341.9 Other central nervous system demyelinating diseases, unspecified 09/04/2016 Nicholas Colvin M.D. 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, U 09/04/2016 Marii Maria, Nicholas Agrawal R93.0 ABNORMAL FINDINGS ON DX IMAGING OF SKULL AND HEAD, 09/22/2016 Asa Smart M51.27 OTHER INTERVERTEBRAL DISC DISPLACEMENT, LUMBOSACRAL REGION Asa Smart 10/13/2016 Bing,Asa Final E78.5 Hyperlipidemia, unspecified 10/13/2016 Bing,Asa Final F41.9 Anxiety disorder, unspecified 10/13/2016 Bing,Asa Reason H53.8 Other visual disturbances 10/13/2016 Bing,Asa Final R20.0 Anesthesia of skin 10/13/2016 Bing,Asa Final Z79.82 afternoon babysitter (current) use of aspirin 10/13/2016 Bing,Asa Final Z79.899 Other cadd technician (current) drug therapy 10/13/2016 MARII JOY, NICHOLAS Castro G97.1 Other reaction to spinal and lumbar puncture 10/11/2017 LACIE STEPHENSON A SURVEYOR HELPER Ot 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 10/11/2017 LACIE STEPHENSON A SURVEYOR HELPER Ot M51.27 OTHER INTERVERTEBRAL DISC DISPLACEMENT, 10/11/2017 LACIE STEPHENSON A SURVEYOR HELPER Ot Z87.39 PERSONAL HISTORY OF DISEASES OF THE MS S 10/11/2017 STEPHENSON, JAIMA A SURVEYOR HELPER Ot Z98.890 OTHER SPECIFIED POSTPROCEDURAL STATES 10/11/2017 APOORVA STEPHENSONIMA A SURVEYOR HELPER Ot 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 10/11/2017 APOORVA STEPHENSONIMA A SURVEYOR HELPER Ot M51.27 OTHER INTERVERTEBRAL DISC DISPLACEMENT, 10/11/2017 STEPHENOSN, JAIMA A SURVEYOR HELPER Ot Z87.39 PERSONAL HISTORY OF DISEASES OF THE MS S 10/11/2017 STEPHENSONAPOORVAIMA A SURVEYOR HELPER Ot Z98.890 OTHER SPECIFIED POSTPROCEDURAL STATES 10/11/2017 STEPHENSONLACIE DUKE A SURVEYOR HELPER Ot 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 10/11/2017 APOORVA STEPHENSONIMA A SURVEYOR HELPER Ot M51.27 OTHER INTERVERTEBRAL DISC DISPLACEMENT, 10/11/2017 LACIE STEPHENSON A SURVEYOR HELPER Ot Z87.39 PERSONAL HISTORY OF DISEASES OF THE MS S 10/11/2017 STEPHENSON, JAIMA A SURVEYOR HELPER Ot Z98.890 OTHER SPECIFIED POSTPROCEDURAL STATES 10/11/2017 LACIE STEPHENSON SURVEYOR HELPER Ot 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 10/11/2017 LACIE STEPHENSON SURVEYOR HELPER Ot M51.27 OTHER INTERVERTEBRAL DISC DISPLACEMENT, 10/11/2017 LACIE STEPHENSON SURVEYOR HELPER Ot Z87.39 PERSONAL HISTORY OF DISEASES OF THE MS S 10/11/2017 LACIE STEPHENSON SURVEYOR HELPER Ot Z98.890 OTHER SPECIFIED POSTPROCEDURAL STATES 10/20/2017 LACIE STEPHENSON SURVEYOR HELPER Ot 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 10/20/2017 LACIE STEPHENSON SURVEYOR HELPER Ot M51.27 OTHER INTERVERTEBRAL DISC DISPLACEMENT, 10/20/2017 LACIE STEPHENSON SURVEYOR HELPER Ot Z87.39 PERSONAL HISTORY OF DISEASES OF THE MS S 10/20/2017 LACIE STEPHENSON SURVEYOR HELPER Ot Z98.890 OTHER SPECIFIED POSTPROCEDURAL STATES 12/18/2017 UNLISTED, UNLISTED W 300.00 ANXIETY STATE, UNSPECIFIED 12/18/2017 UNLISTED, UNLISTED W 340 MULTIPLE SCLEROSIS 12/18/2017 UNLISTED, UNLISTED W F41.9 ANXIETY DISORDER, UNSPECIFIED 12/18/2017 UNLISTED, UNLISTED W G35 MULTIPLE SCLEROSIS 12/18/2017 UNLISTED, UNLISTED W V58.69 LONG-TERM (CURRENT) USE OF OTHER MEDICATIONS 12/18/2017 UNLISTED, UNLISTED W V58.81 ENCOUNTER FOR FITTING AND ADJUSTMENT OF VASCULAR CATHETER 12/18/2017 UNLISTED, UNLISTED W Z45.2 ENCOUNTER FOR ADJUSTMENT AND MANAGEMENT OF VAD 12/18/2017 UNLISTED, UNLISTED W Z79.899 OTHER SNF (CURRENT) DRUG THERAPY 01/13/2018 LACIE STEPHENSON SURVEYOR HELPER Ot 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 01/13/2018 LACIE STEPHENSON SURVEYOR HELPER Ot M51.27 OTHER INTERVERTEBRAL DISC DISPLACEMENT, 01/13/2018 LACIE STEPHENSON SURVEYOR HELPER Ot Z87.39 PERSONAL HISTORY OF DISEASES OF THE MS S 01/13/2018 LACIE STEPHENSON SURVEYOR HELPER Ot Z98.890 OTHER SPECIFIED POSTPROCEDURAL STATES 02/28/2018 LACIE STEPHENSON SURVEYOR HELPER Ot 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 02/28/2018 LACIE STEPHENSON A SURVEYOR HELPER Ot M51.27 OTHER INTERVERTEBRAL DISC DISPLACEMENT, 02/28/2018 STEPHENSONAPOORVAIMA A SURVEYOR HELPER Ot Z87.39 PERSONAL HISTORY OF DISEASES OF THE MS S 02/28/2018 STEPHENSONAPOORVAIMA A SURVEYOR HELPER Ot Z98.890 OTHER SPECIFIED POSTPROCEDURAL STATES 07/29/2018 STEPHENSONAPOORVAIMA A SURVEYOR HELPER Ot 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 07/29/2018 STEPHENSON JAIMA A SURVEYOR HELPER Ot M51.27 OTHER INTERVERTEBRAL DISC DISPLACEMENT, 07/29/2018 STEPHENSON JAIMA A SURVEYOR HELPER Ot Z87.39 PERSONAL HISTORY OF DISEASES OF THE MS S 07/29/2018 STEPHENSON JAIMA A SURVEYOR HELPER Ot Z98.890 OTHER SPECIFIED POSTPROCEDURAL STATES 08/01/2018 STEPHENSONAPOORVAIMA A SURVEYOR HELPER Ot 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 08/01/2018 STEPHENSONAPOORVAIMA A SURVEYOR HELPER Ot M51.27 OTHER INTERVERTEBRAL DISC DISPLACEMENT, 08/01/2018 STEPHENSONAPOORVAIMA A SURVEYOR HELPER Ot Z87.39 PERSONAL HISTORY OF DISEASES OF THE MS S 08/01/2018 STEPHENSONAPOORVAIMA A SURVEYOR HELPER Ot Z98.890 OTHER SPECIFIED POSTPROCEDURAL STATES 08/03/2018 ANJALI JEWELL MD Ot E78.2 MIXED HYPERLIPIDEMIA 08/03/2018 ANJALI JEWELL MD Ot M25.512 PAIN IN LEFT SHOULDER 08/03/2018 ANJALI JEWELL MD Ot Z12.5 ENCOUNTER FOR SCREENING FOR MALIGNANT NE 08/03/2018 ANJALI JEWELL MD Ot Z13.1 ENCOUNTER FOR SCREENING FOR DIABETES SRI 08/18/2018 GRACIELA NETTLES DO Ot Z01.818 ENCOUNTER FOR OTHER PREPROCEDURAL EXAMIN 08/18/2018 ANJALI JEWELL MD Ot E78.2 MIXED HYPERLIPIDEMIA 08/18/2018 ANJALI JEWELL MD Ot M25.512 PAIN IN LEFT SHOULDER 08/18/2018 ANJALI JEWELL MD Ot Z12.5 ENCOUNTER FOR SCREENING FOR MALIGNANT NE 08/18/2018 ANJALI JEWELL MD Ot Z13.1 ENCOUNTER FOR SCREENING FOR DIABETES SRI 08/19/2018 GRACIELA NETTLES DO Ot Z01.818 ENCOUNTER FOR OTHER PREPROCEDURAL EXAMIN Procedures Code [place] [address] FLU VAC NO PRSV 4 JAM 3 YRS + SUMEET JOY, PERCY 04/25/2013 15905 X-RAY EXAM OF LOWER SPINE BETTY JOY, ANAIS Martinez 05/21/2013 71477 EMERGENCY DEPT VISIT BETTY JOY, ANAIS Martinez 05/21/2013 26821 FLU VACCINE NO PRESERV 3 & > BETTY JOY, ANAIS Martinez 05/03/2014 14205 Urinalysis, nonautomated, with micro 04/23/2015 20958 Office visit - new pt, level 2 04/23/2015 00881 URINALYSIS AUTO W/SCOPE MARII JOY, NICHOLAS L 04/24/2015 22821 Office/outpatient visit; established patient, level 3 06/17/2015 41077 INJECT SPINE LUMBAR/SACRAL MARK SORENSON MD 08/28/2015 29874 FLUOROGUIDE FOR SPINE INJECT MARK SORENSON MD 08/28/2015 J1030 METHYLPREDNISOLONE 40 MG INJ MARK SORENSON MD 08/28/2015 J1040 METHYLPREDNISOLONE 80 MG INJ MARK SORENSON MD 08/28/2015 Q9966 LOCM 200-299MG/ML IODINE, 1ML MARK SORENSON MD 08/28/2015 35185 Therapeutic, prophylactic or diagnostic injection; subcutaneous or intramuscular 10/29/2015 37174 Office/outpatient visit; established patient, level 2 10/29/2015 19146 ROUTINE VENIPUNCTURE JOHN JOY, MATEUSZ 12/24/2015 25146 METABOLIC PANEL TOTAL CA MATEUSZ LOPEZ MD 12/24/2015 51643 LIPID PANEL MATEUSZ LOPEZ MD 12/24/2015 94647 HEPATIC FUNCTION PANEL MATEUSZ LOPEZ MD 12/24/2015 96016 ASSAY OF CK (CPK) JOHN JOY, MATEUSZ 12/24/2015 76270 GLYCOSYLATED HEMOGLOBIN TEST MATEUSZ LOPEZ MD 12/24/2015 90122 COMPLETE CBC W/AUTO DIFF WBC MATEUSZ LOPEZ MD 12/24/2015 31335 PPD TB test 01/01/2016 01885 Office/outpatient visit; established patient, level 3 02/04/2016 60474 MRI/spinal, lumbar, w/o contrast 04/07/2016 61783 Office/outpatient visit; established patient, level 3 04/07/2016 92786 Therapeutic, prophylactic or diagnostic injection; subcutaneous or intramuscular 07/09/2016 02132 Office/outpatient visit; established patient, level 3 07/09/2016 00194 New Patient Detailed Asa Smart 08/04/2016 47836 New Patient Detailed Asa Smart 08/13/2016 60611 MRI brain with and without contrast 09/02/2016 27370 OFFICE VISIT EXPANDED Asa Smart 10/01/2016 17992 INJECT EPIDURAL PATCH MARII JOY, NICHOLAS [place] 10/13/2016 Results Test Result Range Urinalysis - 04/25/15 07:46 Bilirubin NEG Negative Urine Appearance Clear Clear pH 6.0 4.5-8.0 Nitrite NEG Negative Leukocyte NEG Negative Glucose NEG Negative Color Lt Yellow Yellow Blood NEG Negative Protein NEG Negative Ketones NEG Negative Urobilinogen 0.2 EU/dl 0.1-1.0 Bacteria RARE Urine RBC N0-2 /hpf NONESEEN;NEG Urine WBC N3-5 /hpf N;NONESEEN Specific [place] 1.020 1.004-1.035 Mucus Threads MANY Sq Epi Cells RARE Site UNK Basic Metabolic Panel - 12/25/15 07:28 Sodium 141 MMOLL 136-145 Potassium 4.8 MMOLL 3.6-5.1 Calcium 8.5 MG/DL 8.5-10.1 BUN 15 MG/DL 7-18 Bun/Creat 14.3 RATIO 12.0-20.0 Anion GAP 7.0 mmol 10.0-20.0 Osmo Calculated 282 MOSM 275-295 Glucose 98 MG/DL 74-106 Creatinine 1.05 MG/DL 0.6-1.3 CO2 31.0 MMOLL 21.0-32.0 Chloride 103 MMOLL 98-107 EGFR > 60 MLMIN > 60 CPK - 12/25/15 07:28 CPK 175 U/L 26-308 Lipid Profile - 12/25/15 07:28 LDL Calculated 84.4 MG/DL 1-130 HDL 41 MG/DL 35-60 Risk 4.0 RATIO 1.4-3.3 Triglyceride 183 MG/DL 30-150 Cholesterol 162 MG/DL 1-200 Hepatic Function Panel w/ GLOB - 12/25/15 07:28 I Bili 0.40 MG/DL T Bili 0.5 MG/DL .1-1.0 T. Protein 7.0 G/DL 6.4-8.2 Alk Phos 76 U/L 50-136 AST 22 15-37 ALT 43 U/L 30-65 Albumin 4.0 G/DL 3.4-5.0 D Bili 0.1 MG/DL .1-.3 Globulin 3.0 G/DL 2.3-3.5 A/G Ratio 1.3 RATIO 1.5-2.0 Hgb A1c - 12/25/15 07:38 Hgb A1c 5.7 % 4.8-6.0 CBC - 12/25/15 07:46 Platelet 318 10^3u 140-440 MPV 7.4 fL 0-99.8 Mid % 22.2 % 0.1-24.0 Mid # 1.0 10^3u 0.0-1.8 MCV 94.8 fL 80-100 MCH 31.6 PG 26.0-32.0 WBC 4.5 10^3u 4.5-10.5 RBC 4.49 10^6u 4.40-6.40 Neut % 29.9 % 38.0-80.0 Neut # 1.3 10^3u 1.5-7.5 RDW 12.3 % 11.5-14.5 MCHC 33.3 G/DL 31.0-36.0 Lymph % 47.9 % 10.0-58.5 Lymph # 2.2 10^3u 0.6-4.1 HCT 42.6 % 37-51 HGB 14.2 G/DL 12.0-18.0 CBC With Platelet and Differential - 10/08/16 10:00 Absolute Basophils 0.01 10*3/uL 0.00-0.20 Absolute Eosinophils 0.24 10*3/uL 0.00-0.50 Absolute Lymphocytes 1.90 10*3/uL 0.80-3.30 Absolute Monocytes 0.31 10*3/uL 0.30-1.00 Absolute Neutrophils 2.67 10*3/uL 1.90-7.00 Basophils 0 % 0-2 Eosinophils 5 % 0-4 HCT 41.2 % 42.0-52.0 HGB 13.7 g/dL 14.0-18.0 Immature Granulocytes 0.2 % 0.0-1.0 Lymphocytes 37 % 20-46 MCH 29.8 pg 27.0-32.0 MCHC 33.3 g/dL 32.0-36.0 MCV 89.6 fL 82.0-99.0 Monocytes 6 % 4-11 MPV 9.5 fL 9.4-12.3 Neutrophils 52 % 51-75 Nucleated RBC Automated 0.0 /100 WBC Platelet Count 270 K/uL 150-400 RBC 4.60 10*6/uL 4.60-6.20 RDW 12.5 % 11.5-14.5 WBC 5.1 K/uL 4.8-10.8 PTT/PT (INR) - 10/08/16 10:00 INR 0.9 NA 0.9-1.2 Glucose, CSF - 10/08/16 11:35 Glucose, CSF 68 mg/dL 40-70 Protein, CSF - 10/08/16 11:35 Protein, CSF 23 mg/dL 15-45 CSF Cell Count with Differential - 10/08/16 11:35 Appearance, CSF Clear NA Color, CSF Colorless NA Color, CSF Post Centrifugation Colorless NA Volume, CSF 8.0 mL Mononuclear Cells, CSF 100 % RBC, CSF 1 /mm3 WBC, CSF 3 /mm3 0-10 Multiple Sclerosis Profile - 10/08/16 11:35 IgG, CSF 3.8 mg/dL <=8.1 CBC With Differential/Platelet - 01/08/17 14:21 WBC 6.2 x10E3/uL 3.4-10.8 RBC 4.57 x10E6/uL 4.14-5.80 Hemoglobin 13.4 g/dL 12.6-17.7 Hematocrit 42.2 % 37.5-51.0 MCV 92 fL 79-97 MCH 29.3 pg 26.6-33.0 MCHC 31.8 g/dL 31.5-35.7 RDW 13.8 % 12.3-15.4 Platelets 302 x10E3/uL 150-379 Neutrophils 51 % Lymphs 37 % Monocytes 8 % Eos 4 % Basos 0 % Neutrophils (Absolute) 3.2 x10E3/uL 1.4-7.0 Lymphs (Absolute) 2.3 x10E3/uL 0.7-3.1 Monocytes(Absolute) 0.5 x10E3/uL 0.1-0.9 Eos (Absolute) 0.2 x10E3/uL 0.0-0.4 Baso (Absolute) 0.0 x10E3/uL 0.0-0.2 Immature Granulocytes 0 % Immature Grans (Abs) 0.0 x10E3/uL 0.0-0.1 Comp. Metabolic Panel (14) - 01/08/17 14:21 Glucose, Serum 91 mg/dL 65-99 BUN 16 mg/dL 6-24 Creatinine, Serum 1.05 mg/dL 0.76-1.27 eGFR If NonAfricn Am 87 mL/min/1.73 >59 eGFR If Africn Am 100 mL/min/1.73 >59 BUN/Creatinine Ratio 15 9-20 Sodium, Serum 139 mmol/L 134-144 Potassium, Serum 4.2 mmol/L 3.5-5.2 Chloride, Serum 98 mmol/L 96-106 Carbon Dioxide, Total 21 mmol/L 18-29 Calcium, Serum 9.8 mg/dL 8.7-10.2 Protein, Total, Serum 7.3 g/dL 6.0-8.5 Albumin, Serum 4.6 g/dL 3.5-5.5 Globulin, Total 2.7 g/dL 1.5-4.5 A/G Ratio 1.7 1.2-2.2 Bilirubin, Total 0.2 mg/dL 0.0-1.2 Alkaline Phosphatase, S 63 IU/L 39-117 AST (SGOT) 17 IU/L 0-40 ALT (SGPT) 23 IU/L 0-44 Lipid 1996 panel - 08/02/18 08:55 Serum or plasma triglyceride measurement (mass/volume) 150 mg/dL <150 Serum or plasma cholesterol measurement (mass/volume) 154 mg/dL < 200 Serum or plasma cholesterol in HDL measurement (mass/volume) 43 mg/ dL 40-60 Cholesterol in LDL [mass/volume] in serum or plasma by direct assay 85 mg/dL 1-129 Serum or plasma cholesterol in VLDL measurement (mass/volume) 30 mg/ dL 5-40 Hemoglobin A1c - 08/02/18 08:55 Blood hemoglobin A1C measurement (mass/volume) 5.4 % 4.0- 5.6 MEAN BLOOD GLUCOSE 108 % <=126 Prostate specific antigen panel (total and free) - 08/02/18 08:55 Serum or plasma free prostate specific antigen/total prostate specific antigen ratio 0.56 % 0.00-4.00 FREE PSA REFERENCE 0.38 % 0.00-0.41 Encounters ACCT No. Visit Date/Time Discharge Status Pt. Type Provider Facility Loc./Unit Complaint [id number] 10/13/2016 17:15:00 10/13/2016 19:15:00 DIS Outpatient MARII JOY, [facility] ATRT [id number] 12/24/2015 10:25:00 12/24/2015 10:25:00 DIS Outpatient JOHN JOY, MATEUSZ [facility] [id number] 09/11/2015 08:45:00 09/11/2015 23:59:59 CLS Outpatient MARII JOY, [facility] ATRT [id number] 08/28/2015 08:25:00 08/28/2015 10:00:00 DIS Outpatient DELTA JOY, [facility] ATRT [id number] 04/24/2015 13:33:00 04/24/2015 13:33:00 DIS Outpatient MARII JOY, [facility] [id number] 04/30/2015 01:05:22 04/30/2015 01:05:22 Outpatient [id number] 01/03/2016 14:48:00 01/03/2016 23:59:59 CLS Outpatient Chidi JOY, [facility] OFFICE [id number] 12/19/2015 13:33:00 12/19/2015 23:59:59 CLS Preadmit Chidi JOY, [facility] LABS [id number] 05/31/2015 09:30:00 05/31/2015 23:59:59 CLS Outpatient Alberto JOY, [facility] OFFICE [id number] 01/09/2015 09:37:00 01/09/2015 23:59:59 CLS Outpatient Chidi JOY, [facility] VISIT [id number] 08/18/2018 10:30:00 08/18/2018 11:26:00 DIS Outpatient GRACIELA NETTLES DO [facility] PREOP COLONOSCOPY/EGD [id number] 08/02/2018 07:31:00 08/02/2018 23:59:59 CLS Outpatient ANJALI JEWELL MD [facility] CARD PAIN IN LT SHOULDER [id number] 10/08/2017 16:42:00 10/08/2017 23:59:59 CLS Outpatient LACIE STEPHENSON SURVEYOR HELPER [facility] RAD CAUDA EQUINA SYNDROME [id number] 08/24/2018 11:27:00 ACT Outpatient GRACIELA NETTLES DO [facility] ENDO HX POLYPS/GASTRITIS [id number] 08/02/2018 07:59:00 Document Registration [id number] 07/28/2017 06:42:00 07/28/2017 23: 59:59 CLS Outpatient [id number] 07/28/2017 06:35:36 07/28/2017 23: 59:59 CLS Outpatient [id number] 07/28/2017 06:35:32 07/28/2017 23: 59:59 CLS Outpatient [id number] 07/22/2017 09:46:24 07/22/2017 23: 59:59 CLS Outpatient [id number] 07/22/2017 09:46:19 07/22/2017 23: 59:59 CLS Outpatient [id number] 06/23/2017 08:37:53 06/23/2017 23: 59:59 CLS Outpatient [id number] 06/23/2017 08:37:52 06/23/2017 23: 59:59 CLS Outpatient [id number] 06/23/2017 08:37:22 06/23/2017 23: 59:59 CLS Outpatient [id number] 06/23/2017 08:37:21 06/23/2017 23: 59:59 CLS Outpatient [id number] 06/11/2017 11:54:34 06/11/2017 23: 59:59 CLS Outpatient [id number] 06/11/2017 11:54:33 06/11/2017 23: 59:59 CLS Outpatient [id number] 06/11/2017 11:52:59 06/11/2017 23: 59:59 CLS Outpatient [id number] 06/11/2017 11:52:58 06/11/2017 23: 59:59 CLS Outpatient [id number] 06/11/2017 11:52:55 06/11/2017 23: 59:59 CLS Outpatient [id number] 06/11/2017 11:52:42 06/11/2017 23: 59:59 CLS Outpatient [id number] 06/11/2017 11:25:46 06/11/2017 23: 59:59 CLS Outpatient [id number] 06/11/2017 11:25:33 06/11/2017 23: 59:59 CLS Outpatient [id number] 05/17/2017 14:37:03 05/17/2017 14: 37:03 DIS Outpatient [id number] 05/17/2017 14:11:24 05/17/2017 14: 11:25 DIS Outpatient [id number] 05/10/2017 14:41:26 05/10/2017 23: 59:59 CLS Outpatient [id number] 05/10/2017 14:41:12 05/10/2017 23: 59:59 CLS Outpatient [id number] 05/10/2017 14:41:11 05/10/2017 23: 59:59 CLS Outpatient [id number] 05/10/2017 14:39:37 05/10/2017 23: 59:59 CLS Outpatient [id number] 05/10/2017 14:39:36 05/10/2017 23: 59:59 CLS Outpatient [id number] 03/04/2017 15:38:56 03/04/2017 23: 59:59 CLS Outpatient [id number] 03/04/2017 15:38:44 03/04/2017 23: 59:59 CLS Outpatient [id number] 02/17/2017 13:14:40 02/17/2017 13: 14:40 DIS Outpatient [id number] 02/17/2017 13:14:26 02/17/2017 13: 14:26 DIS Outpatient [id number] 02/08/2017 09:05:23 02/08/2017 09: 05:23 DIS Outpatient [id number] 02/05/2017 14:06:37 02/05/2017 14: 06:37 DIS Outpatient [id number] 02/05/2017 13:09:39 02/05/2017 13: 09:39 DIS Outpatient [id number] 02/05/2017 13:09:38 02/05/2017 13: 09:38 DIS Outpatient [id number] 02/05/2017 13:08:03 02/05/2017 13: 08:03 DIS Outpatient [id number] 02/05/2017 12:27:56 02/05/2017 12: 27:56 DIS Outpatient [id number] 02/05/2017 12:17:57 02/05/2017 12: 17:57 DIS Outpatient [id number] 02/05/2017 12:02:13 02/05/2017 12: 02:13 DIS Outpatient [id number] 02/05/2017 12:02:11 02/05/2017 12: 02:11 DIS Outpatient [id number] 02/05/2017 12:01:54 02/05/2017 12: 01:54 DIS Outpatient [id number] 01/29/2017 09:06:37 01/29/2017 23: 59:59 CLS Outpatient [id number] 01/11/2017 07:58:17 01/11/2017 23: 59:59 CLS Outpatient [id number] 01/11/2017 16:38:20 01/11/2017 16: 38:20 DIS Outpatient [id number] 01/11/2017 10:10:28 01/11/2017 10: 10:28 DIS Outpatient [id number] 01/11/2017 07:58:04 01/11/2017 07: 58:04 DIS Outpatient [id number] 01/08/2017 15:18:59 01/08/2017 23: 59:59 CLS Outpatient [id number] 01/08/2017 14:28:55 01/08/2017 23: 59:59 CLS Outpatient [id number] 01/08/2017 12:50:31 01/08/2017 23: 59:59 CLS Outpatient [id number] 01/08/2017 12:36:02 01/08/2017 23: 59:59 CLS Outpatient [id number] 01/08/2017 12:34:38 01/08/2017 23: 59:59 CLS Outpatient [id number] 01/08/2017 12:30:16 01/08/2017 23: 59:59 CLS Outpatient [id number] 01/08/2017 12:29:11 01/08/2017 23: 59:59 CLS Outpatient [id number] 01/08/2017 14:40:08 01/08/2017 14: 40:08 DIS Outpatient [id number] 01/08/2017 12:50:14 01/08/2017 12: 50:14 DIS Outpatient [id number] 01/08/2017 12:33:23 01/08/2017 12: 33:25 DIS Outpatient [id number] 01/08/2017 12:29:10 01/08/2017 12: 29:10 DIS Outpatient [id number] 01/05/2017 13:56:03 01/05/2017 23: 59:59 CLS Outpatient [id number] 01/05/2017 13:55:49 01/05/2017 23: 59:59 CLS Outpatient [id number] 10/15/2016 15:53:17 10/15/2016 15: 53:17 DIS Outpatient [id number] 10/15/2016 15:53:16 10/15/2016 15: 53:16 DIS Outpatient [id number] 10/15/2016 15:53:15 10/15/2016 15: 53:15 DIS Outpatient [id number] 10/15/2016 15:52:53 10/15/2016 15: 52:53 DIS Outpatient [id number] 10/15/2016 15:52:52 10/15/2016 15: 52:52 DIS Outpatient [id number] 10/15/2016 15:51:21 10/15/2016 15: 51:21 DIS Outpatient [id number] 02/05/2017 15:25:42 Document Registration [id number] 02/05/2017 14:15:07 Document Registration [id number] 02/05/2017 12:16:00 Document Registration [id number] 01/08/2017 12:41:00 Document Registration [id number] 01/08/2017 12:40:00 Document Registration [id number] 10/08/2016 09:16:00 10/08/2016 15:08:00 DIS Outpatient Smart [facility] on [facility] F3E Demyelinating disease of central nervous sys [id number] 10/09/2016 05:15:52 Document Registration [id number] 10/09/2016 05:15:51 Document Registration [id number] 01/09/2017 07:07:00 Document Registration [id number] 12/10/2015 09:41:00 Document Registration [facility] 11/14/2016 08:44:30 ACT Document Registration [id number] 05/03/2014 11:36:00 05/03/2014 11:36:00 DIS Outpatient BETTY JOY, [facility] OTHER [id number] 05/21/2013 13:13:00 05/21/2013 14:15:00 DIS Emergency BETTY JOY, [facility] ER [id number] 04/25/2013 12:01:00 04/25/2013 12:01:00 DIS Outpatient SUMEET JOY, [facility] OTHER [id number] 10/08/2016 09:16:00 Document Registration [id number] 12/14/2017 00:00:00 12/18/2017 12:40:00 DIS Outpatient UNLISTED, UNLISTED [id number] 01/28/2018 13:02:09 01/28/2018 23:59:59 CLS Outpatient Asa Smart [id number] 09/02/2016 17:11:32 09/12/2016 10:20:46 DIS Outpatient Marii JOY, [facility] [id number] 09/04/2016 08:53:00 09/04/2016 08:53:00 DIS Outpatient Nicholas Col[facility]. [id number] 08/11/2016 13:00:00 08/11/2016 23:59:59 CLS Outpatient Asa Smart M.D. [facility] [id number] 05/25/2016 11:14:00 05/25/2016 11:14:00 DIS Outpatient Nicholas Colvin M.D. [facility] [id number] 07/21/2018 10:40:00 07/21/2018 23:59:59 CLS Outpatient ANJALI JEWELL [facility]
--- OUTSIDE RECORDS SUMMARY | 2018-08-24 12:15 | XMS REPORT ---
Author Author ANJALI JEWELL Organization [facility] Address [address] [place] [address] Care Team Providers Care Health And Wellness Coach Name Role Phone ANJALI JEWELL Unavailable PROBLEMS Type Condition ICD9-CM Code [id number] Code Onset Dates Condition Status SNOMED Code Problem Cauda equina syndrome G83.4 Active 956322743 Problem Mixed hyperlipidemia E78.2 Active 162296454 Problem Mild episode of recurrent major depressive disorder F33.0 Active 963211889 Problem MS (multiple sclerosis) G35 Active 88598468 Problem Gastroesophageal reflux disease with esophagitis K21.0 Active [id number] ALLERGIES No Information ENCOUNTERS Encounter Location Date Diagnosis [facility] [address] [address] Sep, [facility] [address] [address] Sep, [facility] [address] [address] Sep, Cauda equina syndrome G83.4 [facility] [id number] [place] [address] Sep, Mixed hyperlipidemia E78.2 ; MS (multiple sclerosis) G35 and Gastroesophageal reflux disease with esophagitis K21.0 [facility] [id number] [place] [address] Aug, [facility] [address] [address] Jul, [facility] [id number] [place] [address] Jun, [facility] [address] [address] Jun, [facility] [address] [facility] [id number] [place] [address] Apr, Mild episode of recurrent major depressive disorder F33.0 ; MS (multiple sclerosis) G35 and Gastroesophageal reflux disease with esophagitis K21.0 [facility] [address] [facility] [id number] [place] [address] Mar, IMMUNIZATIONS No Known Immunizations SOCIAL HISTORY Never Assessed REASON FOR VISIT refill request PLAN OF CARE VITAL SIGNS MEDICATIONS Medication [...]
--- OUTSIDE RECORDS SUMMARY | 2018-08-24 12:15 | XMS REPORT ---
Author Author MARIA G MUSA Organization [facility] Address [address] [place] [address] Care Team Providers Care Side Stapler Name Role Phone MARIA G MUSA Unavailable PROBLEMS Type Condition ICD9-CM Code [id number] Code Onset Dates Condition Status SNOMED Code Problem Cauda equina syndrome G83.4 Active 028548245 Problem Mixed hyperlipidemia E78.2 Active 905606041 Problem Mild episode of recurrent major depressive disorder F33.0 Active 365367219 Problem MS (multiple sclerosis) G35 Active 43507990 Problem Gastroesophageal reflux disease with esophagitis K21.0 Active 229248268 ALLERGIES No Information ENCOUNTERS Encounter Location Date Diagnosis [facility] [id number] [place] [address] Sep, [facility] [address] [address] Sep, [facility] [address] [address] Sep, Cauda equina syndrome G83.4 [facility] [id number] [place] [address] Sep, Mixed hyperlipidemia E78.2 ; MS (multiple sclerosis) G35 and Gastroesophageal reflux disease with esophagitis K21.0 [facility] [id number] [place] [address] Aug, [facility] [address] [address] Jul, [facility] [id number] [place] [address] Jun, [facility] [address] [address] Jun, [facility] [address] [facility] [id number] [place] [address] Apr, Mild episode of recurrent major depressive disorder F33.0 ; MS (multiple sclerosis) G35 and Gastroesophageal reflux disease with esophagitis K21.0 [facility] [address] [facility] [id number] [place] [address] Mar, IMMUNIZATIONS No Known Immunizations SOCIAL HISTORY Never Assessed REASON FOR VISIT Tamiflu PLAN OF CARE VITAL SIGNS MEDICATIONS Medication Instructions Dosage Frequency Start Date End Date Duration Status Tamiflu 75 MG Orally Once a day 1 capsule 24h Jun, 10 days Active RESULTS No Results PROCEDURES No Known [...]
[2018-08-24] MEDS ORDERED: LACTATED RINGERS 1,000 ML IV ONE (12:35)
[2018-08-24] MEDS ORDERED: DALF10TA PO (12:44)
[2018-08-24 13:08] VITALS: BP 111/75
--- NOTE | 2018-08-24 13:09 | Progress Note-Pre Operative ---
Pre-Operative Progress Note H&P Reviewed The H&P was reviewed, patient examined and no changes noted. Time Seen by Provider: 13:07 Date H&P Reviewed: Aug 24, 2018 Time H&P Reviewed: 13:06 Pre-Operative Diagnosis: Gastritis, Personal hx of colon polyps, Rectal bleed GRACIELA NETTLES DO Aug 24, 2018 13:09
[2018-08-24] MEDS ORDERED: PROPOFOL INJECTION 50 ML IV ONE (14:16)
[2018-08-24] MEDS ORDERED: MIDAZOLAM 2 MG/2 ML (VERSED) VIAL ONE (14:16)
--- NOTE | 2018-08-24 15:25 | Progress Note-Post Operative ---
Post-Operative Progess Note Surgeon (s)/Insolvency Practitioner (s) Surgeon GRACIELA NETTLES DO Insolvency Practitioner: none Pre-Operative Diagnosis Gastritis, Personal hx of colon polyps, Rectal bleed Post-Operative Diagnosis Gastric Ulcer Gastritis and Gastric Polyp Esophagitis Diverticulosis Internal Hemorrhoids Procedure & Operative Findings Date of Procedure 08/24/18 Procedure Performed/Findings EGD with bx Colonoscopy Anesthesia Type IV sedation by HOSE CEMENTER Estimated Blood Loss Estimated blood loss (mL): scant Specimens/Packing Specimens Removed Antral bx of ulcer Body of stomach bx GE jxn bx GRACIELA NETTLES DO Aug 24, 2018 15:25
[2018-08-24] MEDS ORDERED: PANT40TA2 PO (15:27)
--- NOTE | 2018-08-24 15:27 | Endoscopy Discharge Instruct ---
Endo Procedure/Findings Findings 1.: Gastric Ulcer, Gastritis 2.: Other Findings (Esophagitis) 3.: Diverticulosis 4.: Internal Hemorrhoids Discharge Instructions - Activity: You might feel a little sleepy until tomorrow. This is due to the medicine you received to relax you. Until tomorrow, you should: NOT drive a car, operate machinery or power tools. NOT drink any alcoholic beverages. NOT make any important decisions or sign importortant papers. Do not return to work until tomorrow, unless otherwise instructed. Resume previous activities tomorrow. Diet: Start by taking liquids. If you tolerate liquids, advance to solid food. Make an appointment for one week Notify Physician - If you experience excessive bleeding, unusual abdominal pain, fever, or chest pain, contact your doctor immediately. Follow-Up: - I have received and understand the above instructions and will call my doctor if I have any further questions. Patient Signature Date Nurse Signature Other (Relationship) GRACIELA NETTLES DO Aug 24, 2018 15:27
[2018-08-24 15:55] VITALS: BP 109/77
[2018-08-24 16:30] VITALS: BP 111/78
--- NOTE | 2018-08-24 16:31 | Anesthesia-General Post-Op ---
MAC Patient Condition Mental Status/LOC: Same as Preop Cardiovascular: Satisfactory Nausea/Vomiting: Absent Respiratory: Satisfactory Pain: Controlled Complications: Absent Post Op Complications Complications None Follow Up Care/Instructions Patient Instructions None needed. Anesthesiology Discharge Order Discharge Order Patient is doing well, no complaints, stable vital signs, no apparent adverse anesthesia problems. No complications reported per nursing. RASHEEDA ZAPATA CRNA Aug 24, 2018 16:31
[2018-08-24 16:45] VITALS: BP 111/78
--- NOTE | 2018-08-25 02:32 | OPERATIVE REPORT ---
DATE OF SERVICE: 08/24/2018 PREOPERATIVE DIAGNOSES: Gastritis, history of rectal bleed, history of colon polyps. POSTOPERATIVE DIAGNOSES: 1. Gastric ulcer. 2. Hiatal hernia. 3. Gastric polyp. 4. Esophagitis. 5. Diverticulosis. 6. Internal hemorrhoids. PROCEDURES: 1. EGD with biopsy. 2. Colonoscopy. SURGEON: Rishi Nair DO. FLYING TEACHER: None. ANESTHESIA: IV sedation by the SENIOR MATERIALS ANALYST. SPECIMEN: One biopsy from the antrum looked like a gastric ulcer. One biopsy from the body of the stomach and then one biopsy from the GE junction. BLOOD LOSS: Scant. FLUIDS: Per anesthesia. POSTOPERATIVE CONDITION: Stable. INDICATION FOR PROCEDURE: The patient is a 42-year-old male who has been having some gastritis and GERD symptoms as well as he has noticed possibly some hematochezia. History of colon polyp removed, personal history of this and he has a history of diverticulosis. FINDINGS: The patient had a what looked like small gastric ulcers at the antrum. Duodenum looked okay. A small hiatal hernia and he had a gastric polyp as well as some esophagitis. In the colon, he has some diverticulosis and some internal hemorrhoids. PROCEDURE NOTE: After informed consent was obtained, the patient was brought to the endoscopy suite, placed in the left lateral decubitus position. He was administered IV sedation by the SENIOR MATERIALS ANALYST who then monitored his vitals the entire time, heart rate, blood pressure and pulse ox and the scope was inserted starting this EGD first pushing down the mouth through the esophagus into the stomach. Upon entering the stomach noted some gastritis and what looked like gastric ulcers. Took a picture and then did a biopsy, pushed it into the duodenum, looked normal. Pulled back and elected to biopsy the body of stomach and then looked back at the esophageal junction, so it looked like a very small hiatal hernia, possibly pulled into the GE junction. A little bit of esophagitis, elected to do a biopsy here, pulled up the esophagus and out the mouth. Switched gloves and switched scopes, went down below and started the colonoscopy. Pushed the scope in; on the way noted some diverticulosis in the sigmoid and descending colon. Pushed all the way to the cecum, took a picture of appendiceal orifice, noted the ileocecal valve and able to get into the terminal ileum, took a picture of terminal ileum and then slowly withdrew the scope insufflating to look circumferentially at the guerrero looking at the cecum up the ascending colon. In the ascending colon, there were 1 or 2 small diverticula up to the hepatic flexure, then down the transverse colon, splenic flexure, into the descending colon and down into the sigmoid into the descending colon. In the sigmoid, there were lots of diverticula, and then down in the rectum, retroflexed the rectal vault, saw some minimal internal hemorrhoids, took a picture of this and then removed the scope. The patient tolerated the procedure well and he was recovered in the endoscopy suite. Job ID: [id number] DocumentID: [id number] Dictated Date: 08/24/2018 15:31:17 Physician Interventional Cardiologist Date: 08/25/2018 02:32:28 Dictated By: RISHI NAIR DO
== END 2018-08-24 16:45 | disposition home or self-care (01) ==
LOC: ENDO 11:27
PROVIDERS: ATTEND Surgery
DX: K25.9 Gastric ulcer, unspecified as acute or chronic, without hemorrhage or perforation (principal); K44.9 Diaphragmatic hernia without obstruction or gangrene; K31.7 Polyp of stomach and duodenum; K20.9 Esophagitis, unspecified; K57.30 Diverticulosis of large intestine without perforation or abscess without bleeding; K64.8 Other hemorrhoids; Z86.010 Personal history of colon polyps; K21.9 Gastro-esophageal reflux disease without esophagitis; G35 Multiple sclerosis; F41.9 Anxiety disorder, unspecified; Z79.899 Other long term (current) drug therapy

== ENCOUNTER → 2018-09-07 | Outpatient (CLI) | payer BC ==
[~2018-09-07] MED LIST changes: +DALF10TA PO; +PANT40TA2 PO
--- NOTE | 2018-09-07 14:59 | Diagnostic Imaging Report ---
PROCEDURE: MR imaging of the brain without contrast. TECHNIQUE: Multiplanar, multisequence MR imaging of the brain was performed without contrast. INDICATION: Followup MS. COMPARISON: No prior studies are available for comparison. FINDINGS: No diffusion restriction is identified. The normal expected flow-voids within the carotid siphons are seen. There are some periventricular and subcortical white matter signal abnormalities noted on FLAIR sequences. No acute intra-axial or extra-axial hemorrhage is identified. Corpus callosum is unremarkable. The sella and parasellar structures are unremarkable. IMPRESSION: Periventricular and subcortical white matter signal abnormalities consistent with patient's diagnosis of the MS. No acute intracranial process is detected. Dictated by: Dictated on workstation # [id number]
== END ==
LOC: RAD 13:38
DX: G35 Multiple sclerosis (principal); Z79.899 Other long term (current) drug therapy
CPT/HCPCS: 70551

== ENCOUNTER → 2018-12-21 | Outpatient (CLI) | payer BC ==
--- NOTE | 2018-12-21 14:33 | Diagnostic Imaging Report ---
PROCEDURE: MR imaging of the brain without contrast. TECHNIQUE: Multiplanar, multisequence MR imaging of the brain was performed without contrast. INDICATION: Multiple sclerosis. COMPARISON: MRI brain without contrast from 09/07/2018. FINDINGS: Scattered nonspecific T2 hyperintensities in the supratentorial subcortical white matter are stable. No new abnormal intracranial signal. No restricted water diffusion or hemosiderin deposition. Normal morphology including the major midline structures, sella, posterior fossa, and cerebellopontine angle. Normal intracranial flow voids. No hydrocephalus or extra-axial fluid collections. The orbits are unremarkable. Stable mucous retention cyst in the floor of the left maxillary sinus. The mastoids are clear. Normal bone marrow signal. IMPRESSION: Stable nonspecific T2 hyperintensities in the supratentorial white matter. No new abnormal intracranial signal. No acute intracranial findings. Dictated by: Dictated on workstation # [id number]
== END ==
LOC: RAD 13:04
PROVIDERS: ATTEND Psychiatry & Neurology Neurology
DX: G35 Multiple sclerosis (principal)
CPT/HCPCS: 70551